=== PATIENT | female | born 1990 | race Caucasian/White ===

== ENCOUNTER 2019-01-31 09:06 | Emergency (ER) | payer OTHER ==
[~2019-01-31] VITALS: Ht 170.2 cm; Wt 75.7 kg
[2019-01-31 09:11] VITALS: BP 110/75
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
[2019-01-31] MEDS ORDERED: BACITRACIN OINT 500 UNITS/GM PKT TP ONE ×2 (09:25→09:26)
--- NOTE | 2019-01-31 09:25 | NUR ---
DR MCHUGH EVALUATING PT AT BEDSIDE
--- NOTE | 2019-01-31 09:40 | NUR ---
Maria Victoria dee in ED - 01/31/19 at [email or web address] MCHUGH EVALUATING PT AT BEDSIDE
--- NOTE | 2019-01-31 09:50 | NUR ---
PT BACK FROM XRAY
--- NOTE | 2019-01-31 10:15 | NUR ---
APPLIED BASITRACIN AND WRAP TO LEFT UPPER KNEE WITHOUT ANY ISSUES
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
[2019-01-31 10:24] VITALS: BP 110/75
--- NOTE | 2019-01-31 10:24 | NUR ---
Patient discharged with v/s stable. Written and verbal after care instructions given and explained. Pt encouraged to keep left knee clean and dry and to take all antibiotics as prescribed. Patient alert, oriented and verbalized understanding of instructions. Ambulatory with steady gait. All questions addressed prior to discharge. ID band removed. Patient advised to follow up with PMD. Rx of Naproxen 500mg and Keflex 500mg was given. Patient educated on indication of medication including possible reaction and side effects. Opportunity to ask questions provided and answered.
== END 2019-01-31 10:24 | disposition home or self-care (01) ==
LOC: EDSEX 09:06 → MED 09:06
DX: S81.002A Unspecified open wound, left knee, initial encounter (principal); L08.9 Local infection of the skin and subcutaneous tissue, unspecified; V29.9XXA Motorcycle rider (driver) (passenger) injured in unspecified traffic accident, initial encounter; Y93.55 Activity, bike riding; Y92.89 Other specified places as the place of occurrence of the external cause; Y99.8 Other external cause status
CPT/HCPCS: 73562; 90471; 90715; 99283

== ENCOUNTER 2019-08-21 12:19 | Emergency (ER) | payer OTHER ==
[~2019-08-21] VITALS: Ht 167.6 cm; Wt 81.6 kg
[2019-08-21 12:27] VITALS: BP 120/68
[2019-08-21] MEDS ORDERED: IBUPROFEN 600 MG TAB PO ONE (12:45)
[2019-08-21 13:30] VITALS: BP 117/70
== END 2019-08-21 13:30 | disposition home or self-care (01) ==
LOC: MED 12:19
DX: S63.8X1A Sprain of other part of right wrist and hand, initial encounter (principal); X58.XXXA Exposure to other specified factors, initial encounter; Y93.89 Activity, other specified; Y92.89 Other specified places as the place of occurrence of the external cause; Y99.8 Other external cause status
CPT/HCPCS: 73130; 99283

== ENCOUNTER 2019-09-10 07:57 | Emergency (ER) | payer OTHER ==
[~2019-09-10] VITALS: Ht 167.6 cm; Wt 81.6 kg
[2019-09-10 08:00] VITALS: BP 124/70
--- NOTE | 2019-09-10 08:07 | NUR ---
PT AMBULATED TO ER BED 06
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
--- NOTE | 2019-09-10 08:51 | NUR ---
applied velcro splint to right wrist without any issues
[2019-09-10 08:52] VITALS: BP 121/74
--- NOTE | 2019-09-10 08:52 | NUR ---
Patient discharged with v/s stable. Written and verbal after care instructions given and explained. Patient verbalized understanding. Ambulatory with steady gait. All questions addressed prior to discharge. Advised to follow up with PMD. PULSES WNL, PT REPORTS NO PAIN AT THIS TIME AFTER SPLINT PLACEMENT. INSTRUCTED TO FOLLOW RICE-REST, ELEVATE, ICE AND COMPRESSION PRN CAN USE OTC TYLENOL/MOTRIN PRN
== END 2019-09-10 08:52 | disposition home or self-care (01) ==
LOC: MED 07:57
DX: M25.531 Pain in right wrist (principal); F17.210 Nicotine dependence, cigarettes, uncomplicated
CPT/HCPCS: 99282; 99283

== ENCOUNTER 2019-12-19 20:20 | Emergency (ER) | payer OTHER ==
[~2019-12-19] VITALS: Ht 165.1 cm; Wt 63.5 kg
[2019-12-19 21:03] VITALS: BP 134/67
[2019-12-19 21:06] VITALS: BP 134/67
--- NOTE | 2019-12-19 21:06 | NUR ---
PATIENT LEFT WITHOUT BEING SEEN BY DR. PALOMARES. NO FURTHER CARE PROVIDED FOR PATIENT.
== END 2019-12-19 21:06 | disposition left against medical advice (07) ==
LOC: MED 20:20
DX: Z20.828 Contact with and (suspected) exposure to other viral communicable diseases (principal); Z53.1 Procedure and treatment not carried out because of patient's decision for reasons of belief and group pressure

== ENCOUNTER 2021-02-03 18:33 | Emergency (ER) | payer OTHER ==
--- NOTE | 2021-02-03 18:47 | NUR ---
ATTEMPTED TO TRIAGE PATIENT WHO STATES SHE WANTS TO LEAVE. PATIENT REMOVED CARDIOPULMONARY EQUIPMENT AND WALKED OUT.
--- NOTE | 2021-02-03 18:50 | NUR ---
PATIENT LEFT WITHOUT BEING SEEN BY DR. DINH. NO FURTHER CARE PROVIDED FOR PATIENT.
== END 2021-02-03 18:50 | disposition left against medical advice (07) ==
LOC: MED 18:33
DX: Z53.21 Procedure and treatment not carried out due to patient leaving prior to being seen by health care provider (principal)

== ENCOUNTER 2021-06-17 18:29 | Emergency (ER) | payer OTHER ==
[~2021-06-17] VITALS: Ht 167.6 cm; Wt 90.7 kg
[2021-06-17 18:35] VITALS: BP 124/94
--- NOTE | 2021-06-17 18:49 | NUR ---
RECEIVED CALL FROM [facility] IN ADMITTING, PT LEFT AT [phone] PATIENT LEFT WITHOUT BEING SEEN BY DR. WOODRUFF. NO FURTHER CARE PROVIDED FOR PATIENT.
== END 2021-06-17 18:49 | disposition left against medical advice (07) ==
LOC: MED 18:29
DX: R07.9 Chest pain, unspecified (principal); R06.02 Shortness of breath; Z53.21 Procedure and treatment not carried out due to patient leaving prior to being seen by health care provider

== ENCOUNTER 2021-09-07 02:08 | Emergency (ER) | payer OTHER ==
[~2021-09-07] VITALS: Ht 167.6 cm; Wt 81.6 kg
[2021-09-07 02:25] VITALS: BP 110/70
--- NOTE | 2021-09-07 02:28 | NUR ---
TO LOBBY A/W BED AMBULATORY
--- NOTE | 2021-09-07 02:53 | NUR ---
PT TAKEN TO BED 04
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
--- NOTE | 2021-09-07 04:39 | NUR ---
PT APPEARS TO BE RESTING W EYES CLOSED. BREATHING EVEN ANDUNLABORED. WILL CONTINUE TO MONITOR.
--- NOTE | 2021-09-07 05:12 | NUR ---
PT REPORTS HEADACHE HAS IMPROVED.
[2021-09-07 05:14] VITALS: BP 132/71
--- NOTE | 2021-09-07 05:14 | NUR ---
Patient discharged with v/s stable. Written and verbal after care instructions given and explained. Patient verbalized understanding. Ambulatory with steady gait. All questions addressed prior to discharge. Advised to follow up with PMD.
== END 2021-09-07 05:14 | disposition home or self-care (01) ==
LOC: MED 02:08
DX: S09.90XA Unspecified injury of head, initial encounter (principal); W20.8XXA Other cause of strike by thrown, projected or falling object, initial encounter; Y93.89 Activity, other specified; Y92.89 Other specified places as the place of occurrence of the external cause; Y99.8 Other external cause status
CPT/HCPCS: 70450; 99284

== ENCOUNTER 2022-03-27 14:56 | Emergency (ER) | payer OTHER ==
[~2022-03-27] VITALS: Ht 165.1 cm; Wt 81.6 kg
[2022-03-27 15:08] VITALS: BP 127/106
[2022-03-27] MEDS ORDERED: ACET-10509 PO (15:48)
== END 2022-03-27 16:00 | disposition home or self-care (01) ==
LOC: MED 14:56
DX: R51.9 Headache, unspecified (principal); Z79.899 Other long term (current) drug therapy
CPT/HCPCS: 99281